=== PATIENT | female | born 1990 | race Caucasian/White ===

== ENCOUNTER 2016-12-11 22:16 | Emergency (ER) | payer MEDICAID, OTHER ==
[2016-12-11 22:19] VITALS: BP 120/69; PULSE 115; RESP 18; TEMP 98.3; O2SAT 100
--- NOTE | 2016-12-11 22:36 | PD ---
HPI Chief Complaint: Injury Time Seen by Provider: 22:33 Travel History International Travel<30 days: No Contact w/Intl Traveler<30days: No Traveled to known affect area: No History of Present Illness HPI 26-year-old female came to the emergency room with history of left shoulder pain and dislocation earlier today when she tried to do the laundry. Patient has had dislocation of that shoulder last year. She has not seen an orthopedist. She seems to be in significant pain and distress currently. [facility] Past Medical History Narrative Medical List of her past medical, surgical, social and family history was reviewed from the nursing note. Diminished Hearing: No Immunizations Current: Yes ?: Not : 3 Para: 2 Tubal Ligation: Yes Past Surgical History Cholecystectomy: Yes Gynecologic Surgery: Yes (ovary removed) Social History Alcohol Use: No Tobacco Use: Yes (3 CIGS) Substance Use: Yes Allergies-Medications (Allergen,Severity, Reaction): Coded Allergies: No Known Allergies (Verified , 12/11/16) Per pt. Comments No known drug allergies. Reported Meds & Prescriptions Reported Meds & Active Scripts Active Ibuprofen 400 Mg Tab 400 Mg PO Q4H PRN Narrative Medication List of her home medications reviewed from the nursing note. Review of Systems Except as stated in HPI: all other systems reviewed are Neg Physical Exam Narrative GENERAL: Awake, alert, anxious, significant distress SKIN: Focused skin assessment warm/dry. HEAD: Atraumatic. Normocephalic. EYES: Pupils equal and round. No scleral icterus. No injection or drainage. ENT: No nasal bleeding or discharge. Mucous membranes pink and moist. NECK: Trachea midline. No JVD. CARDIOVASCULAR: Regular rate and rhythm. No murmur appreciated. RESPIRATORY: No accessory muscle use. Clear to auscultation. Breath sounds equal bilaterally. GASTROINTESTINAL: Abdomen soft, non-tender, nondistended. Hepatic and splenic margins not palpable. MUSCULOSKELETAL: Left shoulder dislocation and deformity. No clubbing. No cyanosis. No edema. Distal neurovascularly intact NEUROLOGICAL: Awake and alert. No obvious cranial nerve deficits. Motor grossly within normal limits. Normal speech. PSYCHIATRIC: Appropriate mood and affect; insight and judgment normal. Data Data Last Documented VS Vital Signs Date Time Temp Pulse Resp B/P Pulse Ox O2 Delivery O2 Flow Rate FiO2 12/12/16 00:16 86 16 104/66 100 12/11/16 23:50 4.00 12/11/16 23:38 Nasal Cannula 12/11/16 22:19 98.3 Orders Morphine Inj (Morphine Inj) (12/11/16 22:45) Shoulder, Limited(2vws) (12/11/16 ) Midazolam Inj (Versed Inj) (12/11/16 23:30) Sling And Swathe (12/11/16 ) Shoulder, Limited(2vws) (12/11/16 ) Midazolam Inj (Versed Inj) (12/12/16 00:00) Acetamin-Hydrocod 325-5 Mg ([place] 5-325 (12/12/16 00:30) [facility] Medical Decision Making Medical Screen Exam Complete: Yes Emergency Medical Condition: Yes Medical Record Reviewed: Yes Differential Diagnosis Shoulder dislocation, shoulder fracture Narrative Course 11:56 PM shoulder reduction was done under Versed sedation by Davos method. Patient tolerated the procedure overall well. Please refer to my procedure note. Postreduction x-ray is being done at this point.. Patient has shoulder immobilizer applied. She'll be discharged home after half an hour of observation. Procedures Procedure Narrative After the risks and benefits were discussed the following procedure was performed: MODERATE SEDATION: The patient was placed on a mobile application tester and pulse oximetry. An ambu bag and suction was immediately available at bedside. The patient was monitored by the nurse. Oxygen saturation , heart rate and blood pressure were monitored. Procedural sedation was acheived using 4 mg of Versed IV . The patient was observed until awake and alert. Procedural Sedation time in attendance was 25 minutes. Left shoulder dislocation reduction: The shoulder was reduced by Davos method under the procedural sedation. She tolerated the procedure overall well. Postreduction x-ray is pending. Shoulder immobilizer was applied. Diagnosis Primary Impression: Shoulder dislocation, recurrent Qualified Code: M24.412 - Shoulder dislocation, recurrent, left Additional Impression: Hill Sachs deformity, left Referrals: Hossein Burns MD 3 days Additional Instructions: Please keep the shoulder immobilizer on at all times still. Been seen by orthopedist. Extreme movements at that shoulder joint should be avoided. Return to the ER if the condition worsens or any other new concerns. Med/Other Pt SpecificInfo: Prescription(s) given Scripts Ibuprofen 400 Mg [id number] Mg PO Q4H PRN (pain) #20 TAB Ref 0 Prov:Hussein Hernandez MD 12/12/16 Disposition: 01 DISCHARGE HOME Condition: Stable Hussein Hernandez MD December 11, 2016 22:36
[2016-12-11] MEDS ORDERED: MORPHINE SULFATE 4 MG/ML INJ IV PUSH ONE (22:45)
--- NOTE | 2016-12-11 23:15 | RADRPT ---
EXAM DATE/TIME: 12/11/2016 23:07 [facility] COMPARISON: No previous studies available for comparison. INDICATIONS : Left shoulder pain, possible dislocation. MEDICAL HISTORY : None. SURGICAL HISTORY : None. ENCOUNTER: Initial ACUITY: 1 day PAIN SCORE: 10/10 LOCATION: Left Shoulder FINDINGS: Two view examination of the left shoulder demonstrates anterior inferior glenohumeral dislocation wit hout obvious fracture. Bony mineralization is normal. CONCLUSION: Anterior-inferior shoulder dislocation of the glenohumeral joint. Valdez Allan MD on December 11, 2016 at 23:13 Board Certified Radiologist. This report was verified electronically.
[2016-12-11] MEDS ORDERED: MIDAZOLAM HCL 2 MG/2 ML VIAL IV PUSH ONE (23:30)
[2016-12-11 23:38] VITALS: O2SAT 98; O2SAT 99
[2016-12-11 23:50] VITALS: O2SAT 99
[2016-12-12] MEDS ORDERED: MIDAZOLAM HCL 2 MG/2 ML VIAL IV PUSH ONE
[2016-12-12 00:16] VITALS: BP 104/66
--- NOTE | 2016-12-12 00:20 | RADRPT ---
EXAM DATE/TIME: 12/12/2016 00:00 [facility] COMPARISON: No previous studies available for comparison. INDICATIONS : Post reduction of a left shoulder dislocation. MEDICAL HISTORY : None. SURGICAL HISTORY : None. ENCOUNTER: Subsequent ACUITY: 1 day PAIN SCORE: 6/10 LOCATION: Left shoulder FINDINGS: Two view examination of the left shoulder demonstrates no evidence of dislocation. Some lucency along the greater tuberosity may be a Hill-Sachs fracture, age-indeterminate. The glenohumeral and acromi oclavicular joints are maintained. Bony mineralization is normal. CONCLUSION: Some lucency along the greater tuberosity may be a Hill-Sachs fracture, age-indeterminate Valdez Allan MD on December 12, 2016 at 0:18 Board Certified Radiologist. This report was verified electronically.
[2016-12-12] MEDS ORDERED: IBUP400T20 PO (00:28)
[2016-12-12] MEDS ORDERED: ACETAMINOPHEN/HYDROcodone 325 MG/5 MG TAB PO ONE (00:30)
== END 2016-12-12 01:01 | disposition home or self-care (01) ==
LOC: NEPE 22:16
DX: M24.419 Recurrent dislocation, unspecified shoulder (principal); Z72.0 Tobacco use; F19.10 Other psychoactive substance abuse, uncomplicated
CPT/HCPCS: 23650; 73030; 96374; 96375; 99152; 99285; J2250; J2270

== ENCOUNTER 2017-08-07 05:01 | Emergency (ER) | payer OTHER ==
[~2017-08-07] VITALS: Ht 170.2 cm; Wt 51.4 kg
[~2017-08-07 05:01] MED LIST: NORC5TAB PO
[2017-08-07 05:04] VITALS: BP 181/105; PULSE 130; RESP 16; TEMP 98; O2SAT 100
[2017-08-07] MEDS ORDERED: PROPOFOL 500 MG/50 ML BTL IV ONE (05:45)
[2017-08-07 05:59] VITALS: O2SAT 100
--- NOTE | 2017-08-07 06:11 | RADRPT ---
EXAM DATE/TIME: 08/07/2017 05:41 [facility] COMPARISON: SHOULDER LEFT LTD (2VWS), February 19, 2017, 10:55. SHOULDER LEFT LTD (2VWS), April 14, 2017, 11:4 0. INDICATIONS : Left shoulder pain. MEDICAL HISTORY : None. SURGICAL HISTORY : None. ENCOUNTER: Initial ACUITY: 1 day PAIN SCORE: 10/10 LOCATION: Left shoulder FINDINGS: There is anterior and inferior dislocation of the humerus with respect to the glenoid. Osseous struct ures appear intact without evidence for acute bony fracture. Visualized portions of the lungs are eliz ar. CONCLUSION: 1. Anterior left shoulder dislocation. Luca Christie MD on August 07, 2017 at 6:09 Board Certified Radiologist. This report was verified electronically.
--- NOTE | 2017-08-07 06:28 | RADRPT ---
EXAM DATE/TIME: 08/07/2017 06:20 [facility] COMPARISON: SHOULDER LEFT LTD (2VWS), August 07, 2017, 5:41. INDICATIONS : Post Reduction left shoulder. MEDICAL HISTORY : None. SURGICAL HISTORY : None. ENCOUNTER: Subsequent ACUITY: 1 day PAIN SCORE: 8/10 LOCATION: Left Shoulder FINDINGS: Interval reduction of the left shoulder with near anatomic relationship of the humeral head to the gl enoid fossa. No new acute bony fracture is appreciated. A.c. joint is intact. Soft tissues are within normal limits. The remainder of the exam is unchanged. CONCLUSION: 1. Interval reduction of left shoulder dislocation. No acute fracture. Luca Christie MD on August 07, 2017 at 6:25 Board Certified Radiologist. This report was verified electronically.
--- NOTE | 2017-08-07 06:46 | PD ---
HPI Chief Complaint: Injury Time Seen by Provider: 05:35 Travel History International Travel<30 days: No Contact w/Intl Traveler<30days: No Traveled to known affect area: No History of Present Illness HPI 27yo F with recurrent left shoulder dislocation here with c/o shoulder dislocation. Said this is the sixth time and she was just twisting in bed. Said she finally found an orthopedic surgeon that would take her insurance. Denies any focal weakness or numbness. Denies any fever, chest pain, sob, n/v, abdominal pain. PFSH Past Medical History Diminished Hearing: No Immunizations Current: Yes ?: Not LMP: 2 WEEKS AGO : 4 Para: 4 Tubal Ligation: Yes Past Surgical History Abdominal Surgery: Yes (GALLBLADDER REMOVAL ) Cholecystectomy: Yes Gynecologic Surgery: Yes (LEFT OOPHERECTOMY ) Social History Alcohol Use: Yes (occasionaly ) Tobacco Use: Yes Substance Use: No (DENIES ) Allergies-Medications (Allergen,Severity, Reaction): Coded Allergies: No Known Allergies (Verified , 02/19/17) Per pt. Reported Meds & Prescriptions Reported Meds & Active Scripts Active Review of Systems Except as stated in HPI: all other systems reviewed are Neg Physical Exam Narrative GENERAL: 27yo F in moderate distress. SKIN: Focused skin assessment warm/dry. HEAD: Atraumatic. Normocephalic. CARDIOVASCULAR: Regular rate and rhythm. No murmur appreciated. RESPIRATORY: No accessory muscle use. Clear to auscultation. Breath sounds equal bilaterally. GASTROINTESTINAL: Abdomen soft, non-tender, nondistended. MUSCULOSKELETAL: Left shoulder anterior dislocation. Distal pulses intact. Sensation intact. NEUROLOGICAL: Awake and alert. No obvious cranial nerve deficits. Motor grossly within normal limits. Normal speech. PSYCHIATRIC: Appropriate mood and affect; insight and judgment normal. Data Data Last Documented VS Vital Signs Date Time Temp Pulse Resp B/P (MAP) Pulse Ox O2 Delivery O2 Flow Rate FiO2 08/07/17 06:48 08/07/17 05:59 100 2.00 08/07/17 05:59 Nasal Cannula 08/07/17 05:04 98.0 130 16 Orders Orders Shoulder, Limited(2vws) (08/07/17 ) Propofol 500 Mg/50 Ml Inj (Diprivan 500 (08/07/17 05:45) Shoulder, Limited(2vws) (08/07/17 ) Ed Discharge Order (1/20/18 06:46) [facility] Medical Decision Making Medical Screen Exam Complete: Yes Emergency Medical Condition: Yes Differential Diagnosis Recurrent left shoulder dislocation Narrative Course 27yo F with recurrent left shoulder dislocation here with left shoulder dislocation. Xray showed anterior dislocation left shoulder. Procedural sedation performed and shoulder reduced. Post reduction xray showed reduction of left shoulder. No acute fracture. Return precaution given. Procedures Procedure Narrative After the risks and benefits were discussed the following procedure was performed: MODERATE SEDATION: The patient was placed on a surgery manager and pulse oximetry. An ambu bag and suction was immediately available at bedside. The patient was monitored by the nurse. Oxygen saturation , heart rate and blood pressure were monitored. Procedural sedation was acheived using 130mg of propofol . The patient was observed until awake and alert. Procedural Sedation time in attendance was 20 minutes. Diagnosis Primary Impression: Recurrent shoulder dislocation Qualified Codes: M24.412 - Recurrent dislocation, left shoulder Patient Instructions: General Instructions Departure Forms: Tests/Procedures Additional Instructions: Please follow up with your orthopedic surgeon in 1-2 days. Return to the ED if symptoms worsen. Med/Other Pt SpecificInfo: No Change to Meds Disposition: 01 DISCHARGE HOME Condition: Stable Monica Marquez DO Aug 07, 2017 06:46
== END 2017-08-07 07:05 | disposition home or self-care (01) ==
LOC: NEPE 05:01
DX: M24.412 Recurrent dislocation, left shoulder (principal); Z72.0 Tobacco use
CPT/HCPCS: 23650; 73030; 99152